=== PATIENT | male | born 1955 | race Caucasian/White ===

== ENCOUNTER 2017-02-13 17:33 | Inpatient (IN) | payer BC ==
[~2017-02-13] VITALS: Ht 172.7 cm; Wt 102.3 kg
[2017-02-13 18:08] LABS: HEMOGLOBIN ISTAT 16.3 gm/dL; POTASSIUM ISTAT 4.3 mmol/L (3.5-5.0)
--- NOTE | 2017-02-13 18:12 | ED.ADGEN ---
Past History Past Medical History: Hypertension, Other Past Surgical History: Other Adult General Chief Complaint Chief Complaint ".. I been having really sharp chest pain the last hour... it has not gone away..." HPI HPI Patient is a 61 year old male who presents with above hx and complaints of chest pain. Pain is rated 7/10.. and constant the past hour. Pain is not made worse with cough or movement. Pt. denies prior Hx. of HTN or tobacco use. No prior hx of chest pain, cardiac dz. , DVT or PE. Pt. has family Hx of sister with Mi ate 61, and father of MD age 57. Pt. does drink two beers a day. No hx of trauma, tavel or ill contracts. Pt. normally follows with Dr. Oliveros. Review of Systems Review of Systems Constitutional: Denies fever or chills [] Eyes: Denies change in visual acuity, redness, or eye pain [] HENT: Denies nasal congestion or sore throat [] Respiratory: Denies cough or shortness of breath [] Cardiovascular: No additional information not addressed in HPI [] GI: Denies abdominal pain, nausea, vomiting, bloody stools or diarrhea [] : Denies dysuria or hematuria [] Musculoskeletal: Complaints of mid back/ chest pain . Denies joint pain [] Integument: Denies rash or skin lesions [] Neurologic: Denies headache, focal weakness or sensory changes [] Endocrine: Denies polyuria or polydipsia [] Family History Family History Sister has had an MD and father from MD Current Medications Current Medications Current Medications Medications (Trade) Dose Ordered Sig/Momo Start Time Stop Time Status Last Admin Dose Admin Aspirin (Children'S Aspirin) 324 mg 1X ONCE 02/13/17 18:45 02/13/17 18:46 DC 02/13/17 18:45 324 MG Enoxaparin Sodium 100 mg 100 mg 1X ONCE 02/13/17 18:45 02/13/17 18:46 DC 02/13/17 18:43 100 MG Lactated Ringer's (Iv Lactated Ringers) 1,000 ml @ 1,000 mls/hr Q1H 02/13/17 18:15 02/13/17 18:47 1,000 MLS/HR Nitroglycerin (Nitro-Bid Oint) 1 inch 1X ONCE 02/13/17 18:45 02/13/17 18:46 DC 02/13/17 18:42 1 INCH See nursing for home meds Allergies Allergies Allergies Coded Allergies Type Severity Reaction Last Updated Verified No Known Drug Allergies 02/13/17 No Physical Exam Physical Exam Constitutional: Moderately acute distress, non-toxic appearance. [] HENT: Normocephalic, atraumatic, bilateral external ears normal, oropharynx moist, no oral exudates, nose normal. [] Eyes: PERRLA, EOMI, conjunctiva normal, no discharge. [] Neck: Normal range of motion, no tenderness, supple, no stridor. [] Cardiovascular: Bradycardia Heart rate regular rhythm, no murmur [] Lungs & Thorax: Bilateral breath sounds at apexes on auscultation [] Abdomen: Bowel sounds normal, soft, no tenderness, no masses, no pulsatile masses. Declines rectal at this time. Skin: Warm, dry, no erythema, no rash. [] Back: No tenderness, no CVA tenderness. [] Extremities: No tenderness, no cyanosis, no clubbing, ROM intact, no edema. No cording appreciated Neurologic: Alert and oriented X 3, normal motor function, normal sensory function, no focal deficits noted. [] Psychologic: Affect anxious, judgement normal, mood normal. [] Current Patient Data Vital Signs Vital Signs Date Time Temp Pulse Resp B/P Pulse Ox O2 Delivery O2 Flow Rate FiO2 02/13/17 19:44 98 18 164/96 94 Room Air 02/13/17 17:33 97.8 Lab Results Laboratory Tests Test 02/13/17 17:45 02/13/17 17:53 02/13/17 17:56 02/13/17 18:30 Prothrombin Time 9.9SEC (9.4-11.4) Prothrombin Time INR 1.0 (0.9-1.1) PTT 26SEC (23-33) D-Dimer (Halley) 0.54mg/L (0.00-0.50) H Creatine Kinase 139U/L (39-308) Creatine Kinase MB (Mass) 2.9ng/mL (0.0-3.6) Creatine Kinase MB Relative Index 2.1% (0-4) Troponin I Quantitative 0.061ng/mL (0-0.055) H RY-Nwi-U-Type Natriuretic Peptide 77pg/mL (0-124) POC Hemoglobin 16.3gm/dL POC Hematocrit 48% POC Sodium 142mmol/L (135-145) POC Potassium 4.3mmol/L (3.5-5.0) POC Chloride 101mmol/L (98-110) POC Total CO2 31mmol/L (23-32) Anion Gap 16mmol/L (6-14) H POC Blood Urea Nitrogen 21mg/dL (8-26) POC Creatinine 0.9mg/dL (0.5-1.4) Glucose Level 168mg/dL (60-99) H POC Ionized Calcium (Michael) 1.08mmol/L (1.13-1.32) L POC Troponin I 0.03ng/ml (<0.08) Urine Collection Type Unknown Urine Color Yellow Urine Clarity Clear Urine pH 8.5 Urine Specific [place] 1.015 Urine Protein 100 mg/dl (NEG-TRACE) Urine Glucose (UA) Negmg/dL (NEG) Urine Ketones (Stick) Negmg/dL (NEG) Urine Blood Neg (NEG) Urine Nitrite Neg (NEG) Urine Bilirubin Neg (NEG) Urine Urobilinogen Dipstick 1mg/dL (0.2 mg/dL) Urine Leukocyte Esterase Neg (NEG) Urine RBC Occ/HPF (0-2) Urine WBC Occ/HPF (0-4) Urine Squamous Epithelial Cells Occ/LPF Urine Bacteria 0/HPF (0-FEW) Urine Mucus Slight/LPF Urine Opiates Screen Neg (NEG) Urine Methadone Screen Neg (NEG) Urine Barbiturates Neg (NEG) Urine Phencyclidine Screen Neg (NEG) Urine Amphetamine/Methamphetamine Neg (NEG) Urine Benzodiazepines Screen Neg (NEG) Urine Cocaine Screen Neg (NEG) Urine Cannabinoids Screen Neg (NEG) Urine Ethyl Alcohol Neg (NEG) EKG EKG My interpretation of EKG shows a sinus bradycardia at 61. Does have anterior septal changes. But no findings acute STEMI at this time. Does have some LVH changes. [] Radiology/Procedures Radiology/Procedures My interpretation of chest x-ray shows some borderline cardiomegaly. Some basilar atelectasis bilaterally. No large infiltrate appreciated Course & Med Decision Making Course & Med Decision Making Pertinent Labs and Imaging studies reviewed. (See chart for details) Patient currently at 1900 hrs. completely pain-free. Blood pressure is down to the 150s / 80. Discussed presentation, testing and treatment plan with Dr. Oliveros. Will admit for further eval and tx. [] Final Impression Final Impression 1. Chest Pain[] 2. HTN 3. DM 4. Elevated D-dimer 5. Bilateral atelectasis Problems: Dragon Disclaimer Dragon Disclaimer This electronic medical record was generated, in whole or in part, using a voice recognition dictation system. DEEJAY OSBORNE MD Feb 13, 2017 18:12
[2017-02-13] MEDS ORDERED: IV RINGERS SOLUTION,LACTATED 1,000 ML IV SCH (18:15)
[2017-02-13] MEDS ORDERED: ASPIRIN 81 MG TAB.CHEW PO ONE (18:45)
[2017-02-13] MEDS ORDERED: ENOXAPARIN ** NOTE DOSE ** SYRINGE SQ ONE (18:45)
[2017-02-13] MEDS ORDERED: NITROGLYCERIN OINT 1 GM PACKET. TP ONE (18:45)
[2017-02-13 19:08] LABS: BARBITURATES NEG (NEG); BENZODIAZEPINES NEG (NEG); CANNABINOIDS NEG (NEG); COCAINE NEG (NEG); METHADONE NEG (NEG); OPIATES NEG (NEG); PHENCYCLIDINE NEG (NEG)
[2017-02-13 19:09] LABS: AMPHETAMINE/METHAMPHETAMINE NEG (NEG)
[2017-02-13 19:10] LABS: BACTERIA,URINE 0 /HPF (0-FEW); BILIRUBIN,URINE NEG (NEG); CLARITY,URINE CLEAR; COLOR,URINE YELLOW; GLUCOSE,URINE NEG (NEG); NITRITE,URINE NEG (NEG); RBC,URINE OCC /HPF (0-2); SQUAMOUS EPITHELIAL CELL,UR OCC /LPF; UROBILINOGEN,URINE 1 mg/dL (0.2 mg/dL); WBC,URINE OCC /HPF (0-4)
--- NOTE | 2017-02-13 19:24 | EKG ---
[address] [address] Test Date: 2017-02-13 Test Time: 17:40:33 Pat Name: ERICK WITT Department: Room: Gender: M [employer] Machine: EMILIE : 1955 Requested By: DEEJAY OSBORNE Order Number: [id number] Reading MD: Andrew Henriquez Measurements Intervals [place] Rate: 61 P: [place]: QRS: 31 QRSD: 104 T: 58 QT: 416 QTc: 424 Interpretive Statements SINUS RHYTHM NON-SPECIFIC ST/T CHANGES Electronically Signed On 02-17-2017 15:30:04 CDT by Andrew Henriquez
[2017-02-13] MEDS ORDERED: ONDANSETRON PF 4 MG/2 ML VIAL. IV PRN (19:45)
[2017-02-13] MEDS ORDERED: MORPHINE SULFATE 2 MG/ML DISP.SYRIN. IV PRN (19:45)
[2017-02-13] MEDS ORDERED: IPRATRPIUM/ALBUTEROL 0.5/2.5MG 3 ML NEBU. NEB ONE (19:50)
[2017-02-13] MEDS ORDERED: IOHEXOL 300 MG/ML 75 ML VIAL. IV ONE (20:15)
--- NOTE | 2017-02-13 20:24 | RAD ---
PROCEDURE CT angiogram of the chest with intravenous contrast. HISTORY Chest pain and shortness of breath. Elevated D-dimer. TECHNIQUE Computed tomographic images of the chest were obtained following the administration of 75 cc Omnipaque 300 intravenous contrast. One or more of the following individualized dose reduction techniques were utilized for this examination: 1. Automated exposure control; 2. Adjustment of the mA and/or kV according to patient size; 3. Use of iterative reconstruction technique. COMPARISON None. FINDINGS There is no evidence of pulmonary embolism. The heart is upper normal in size. There is a bovine aortic arch branching pattern, a normal variant. No pathologically enlarged mediastinal or hilar lymph node is seen. There is no pneumothorax or plural effusion. There is posterior dependent and basilar atelectasis. There is gynecomastia. There is hepatomegaly and hepatic steatosis. There is mild splenomegaly. The adrenal glands and visualized portions of the kidneys are unremarkable. There is no suspicious osseous lesion. There are degenerative changes within the thoracic spine. IMPRESSION 1. No acute pulmonary finding. 2. Hepatomegaly and hepatic steatosis and mild splenomegaly. Electronically signed by: Hannah Sims (Feb 13, 2017 20:24:11)
[2017-02-13] MEDS: ENOXAPARIN ** NOTE DOSE ** SYRINGE SQ SCH (21:00)
[2017-02-13] MEDS: NITROGLYCERIN OINT 1 GM PACKET. TP SCH (21:00)
[2017-02-13 21:52] VITALS: BP 128/80
--- NOTE | 2017-02-13 22:10 | NUR ---
The patient, ERICK WITT, 61 y/o, M admitted by MARIO PATTERSON MD, was given written information regarding hospital policies, unit procedures and contact persons. Valuables were checked and logged. Call light in place. Will continue to monitor.
--- NOTE | 2017-02-14 00:41 | ACF ---
Admission Criteria Forms CARDIOLOGY [facility] Clinical Indications for Admission to Inpatient Care ( Place 'X' for any and all applicable criteria): Hospital admission is needed for appropriate care of the patient because of ANY ONE of the following (1): [ ] I. Hemodynamic instability as indicated by ALL of the following (1)(2)(3) (4)(5) [ ]a) Vital signs or other findings not as expected for chronic patient condition or baseline [ ]b) Instability indicated by ANY ONE of the following: [ ]i) Hypotension [ ]ii) Symptomatic Tachycardia unresponsive to treatment ( e.g., analgesia, fluids, sedation as indicated) [ ]iii) Inadequate perfusion indicated by ANY ONE of the following: [ ] 1) Lactic acidosis (> 2 mmol/L) [ ] 2) New abnormal capillary refill (> 3 seconds) [ ] 3) Reduced urine output [ ] 4) New altered mental status [ ]iv) Orthostatic vital sign changes unresponsive to treatment (e.g., fluids) [ ]v) IV inotropic or vasopressor medication required to maintain adequate blood pressure or perfusion [ ] II. Severe heart failure as indicated by ANY ONE of the following(17)(18) [ ]a) Respiratory distress [ ]b) Hypotension [ ]c) Anasarca (refractory to outpatient therapy) [ ]d) Cardiac arrhythmias of immediate concern [ ]e) Myocardial ischemia [ ] III. Cardiac arrhythmias or findings of immediate concern indicated by ANY ONE of the following (19)(20): [ ] a) Heart rhythms that are inherently dangerous or unstable indicated by ANY ONE of the following (21)(22)(23): [ ] i) Resuscitated ventricular fibrillation or cardiac arrest [ ] ii) Ventricular escape rhythm [ ] iii) Sustained ventricular tachycardia (30 seconds or more of ventricular rhythm at greater than 100 beats per minute) [ ] iv) Nonsustained ventricular tachycardia and ANY ONE of the following: [ ] 1) Suspected cardiac ischemia as cause or consequence of ventricular tachycardia [ ] 2) In setting of acute myocarditis [ ] b) Unstable cardiac conduction defects indicated by ANY ONE of the following(23)(24)(25) [ ] i) Type II second-degree atrioventricular block [ ]ii) Third-degree atrioventricular block [ ]iii) New-onset left bundle branch block with suspected myocardial ischemia [ ]c) Any heart rhythm and ANY ONE of the following (21)(22)(26)(27) (28) [ ] i) Continuous long-term ECG monitoring needed (e.g., initiation of drug requiring monitoring for more than 24 hours) [ ] ii) Patient has automatic implanted cardioverter defibrillator that is repeatedly firing, malfunctioning, or in need of immediate adjustment of settings beyond the scope of ambulatory or observation care [ ]d) Heart rhythms of concern due to ANY ONE of the following: [ ] i) Hypotension [ ] ii) Respiratory distress [ ] iii) Association with other significant symptoms (e.g., bradycardia with syncope or ongoing dizziness, supraventricular tachycardia with chest pain (14)(15)(17) [ ] IV. Monitoring for cardiac contusion beyond the scope of observation care needed [A](30)(31)(32) [ ] V. Surgical or device complication (e.g., valve replacement complication , pacemaker dysfunction) (35)(41)(44)(45)(46) [ ] . Inpatient palliative care needed. [B](49) Also use Inpatient Palliative Care Criteria [ ] VII. Nonbacterial thrombotic (marantic) endocarditis (36)(43)(47)(48) [X] VIII. Cardiology condition, symptom, or finding for which emergency and observation care has failed or are not considered appropriate. [ ] IX. Acute valvular disease requiring inpatient as indicated by ANY ONE of the following (41) [ ]a) Acute valvular regurgitation (42) [ ]b) Noninfectious valvulitis (43) [ ]c) Obstructive valve thrombosis [ ]d) Paravalvular leak [ ]e) Other significant valvular disorder remaining after emergency or observation level of care (as appropriate) [ ]X. Pericardial disease requiring inpatient treatment as indicated by ANY ONE of the following (33)(34)(35)(36)(37) [ ]a) Suspected tamponade (38)(39)(40) [ ]b) Hemopericardium [ ]c) Other significant pericardial disorder remaining after emergency or observation level of care (as appropriate) [ ] XI. Cardiac ischemia beyond scope of emergency and observation care. [ ] XII. Hypertension requiring inpatient treatment as indicated by ANY ONE of the following (6)(7)(8) [ ]a) SBP greater than 220 mm Hg or DBP greater than 120 mmHg despite treatment [ ]b) SBP greater than 140 mm Hg or DBP greater than 100 mm Hg with evidence of acute end organ damage as indicated by ANY ONE of the following [ ] i) Encephalopathy [ ] ii) Acute renal failure as indicated by new onset of ANY ONE of the following (9)(10)(11)(12)(13) [ ]1) 3-fold rise in serum creatinine from baseline [ ]2) Serum creatinine greater than 4 mg/dL ( 354 micromoles/L) with acute rise greater than 0.5 mg/dL (44.2 micromoles/L) [ ]3) Reduction of more than 75% in estimated glomerular filtration rate from baseline [ ]4) Estimated glomerular filtration rate less than 35 mL/min/1.73m2 (0.59 mL/sec/1.73m2) in child up to 18 years of age [ ]5) Cessation of urine output indicated by ALL of the following [ ]A. Adequate volume status [ ]B. Inadequate urine output as indicated by ANY ONE of the following [ ]a. Urine output less than 0.3 mL/kg/hr for 24 hours [ ]b. Anuria (urine output less than 0.1 mL/kg/hr) for 12 hours [ ] iii) Aortic dissection [ ] iv) Myocardial Ischemia [ ] v) Left ventricular heart failure [ ]vi) Retinal Hemorrhage [ ]vii) Other significant finding [ ]c) Hypertension in child requiring inpatient treatment as indicated by ALL of the following(14)(15)(16) [ ] i) Outpatient treatment not effective, not available, or not appropriate [ ]ii) SBP or DBP greater than 95th percentile for age [ ]iii) Evidence of acute end organ damage as indicated by ANY ONE of the following [ ]1) Altered mental status [ ]2) Acute renal failure as indicated by new onset of ANY ONE of the following(9)(10)(11)(12)(13) [ ]A. 3-fold rise in serum creatinine from baseline [ ]B. Serum creatinine greater than 4 mg/dL (354 micromoles/L) with acute rise greater than 0.5 mg/dL (44.2 micromoles/L) [ ]C. Reduction of more than 75% in estimated glomerular filtration rate from baseline [ ]D. Estimated glomerular filtration rate less than 35 mL/min/1.73m2 (0.59 mL/sec/1.73m2) in child up to 18 years of age [ ]E. Cessation of urine output indicated by ALL of the following [ ]a. Adequate volume status [ ]b. Inadequate urine output as indicated by ANY ONE of the following [ ]i) Urine output less than 0.3 mL/kg/hr for 24 hours [ ]ii) Anuria ( urine output less than 0.1 mL/kg/hr) for 12 hours [ ]3) Severe headache [ ]4) Visual disturbance [ ]5) Retinal hemorrhage [ ]6) Other significant finding [ ]XIII. Complications of transplanted heart indicated by ANY ONE of the following(61): [ ]a) Acute graft rejection requiring inpatient management (eg, intravenous immunosuppression)(62)(63) [ ]b) Acute graft heart failure indicated by ANY ONE of the following(64): [ ]i) Hemodynamic instability [ ]ii) Cardiac arrhythmias of immediate concern [ ]iii) Pulmonary edema that is very severe (eg, mechanical ventilation needed, imminent or likely, need for 100% oxygen to keep oxygen saturation above 90%) [ ]iv) Pulmonary edema that is persistent as indicated by ALL of the following: [ ]1) New need for oxygen therapy to keep oxygen saturation above 90% (or increased FiO2 need from baseline) [ ]2) Has not improved sufficiently with emergency department or observation care IV diuretics or other heart failure treatments[E] [ ]v) Altered mental status that is severe or persistent [ ]vi) Increased creatinine (new on laboratory test) with reduction of more than 50% in estimated glomerular filtration rate from baseline [ ]vii) Progressively (ongoing) rising creatinine (known from past laboratory test) with reduction of more than 25% in estimated glomerular filtration rate from baseline [ ]viii) Acute renal failure [ ]ix) Acute peripheral ischemia (eg, examination shows pulseless, cool, mottled, or cyanotic extremity) [ ]x) Pulmonary artery catheter monitoring needed [ ]xi) Other sign or symptom of heart failure requiring inpatient treatment (ie, too severe or not responsive to outpatient and observation care treatment) [ ]c) Infection requiring inpatient management (eg, Hemodynamic instability, need for intravenous antimicrobial treatment)(66)(67)(68)(69)(70) [ ]d) Cardiac allograft vasculopathy requiring inpatient management ( eg evidence of cardiac ischemia)(71) [ ]e) Other complication of transplanted heart (eg, stroke, severe pulmonary hypertension, severe valvular dysfunction) requiring inpatient management(72) The original [facility] content created by [facility] has been revised. The portions of the content which have been revised are identified through the use of italic text or in bold, and [facility] has neither reviewed nor approved the modified material. All other unmodified content is copyright [facility]. Please see references footnoted in the original [facility] edition 2016 Admission Criteria Met?: Yes DARREN CLAYTON Feb 14, 2017 00:41
[2017-02-14 01:40] VITALS: BP 124/66
--- NOTE | 2017-02-14 01:58 | EKG ---
[address] [address] Test Date: 2017-02-14 Test Time: 00:58:46 Pat Name: ERICK WITT Department: Room: [facility] 1 Gender: M Manager Study: KOFI : 1955 Requested By: MARIO PATTERSON Order Number: [id number] Reading MD: Andrew Henriquez Measurements Intervals [place] Rate: 66 P: 28 AR: 146 QRS: 5 QRSD: 102 T: 38 QT: 398 QTc: 419 Interpretive Statements SINUS RHYTHM Electronically Signed On 02-17-2017 15:31:05 CDT by Andrew Henriquez
[2017-02-14] MEDS ORDERED: no medications (02:07)
--- NOTE | 2017-02-14 02:13 | NUR ---
Cardio consult to Dr. Gomez at this time for stat consult.
--- NOTE | 2017-02-14 02:19 | NUR ---
Dr. Gomez notified for consult. No new orders given at this time.
[2017-02-14 06:34] VITALS: BP 133/68
[2017-02-14 07:17] LABS: BASO # 0.1 x10^3/uL (0.0-0.2); BASO % 1 % (0-3); EOS # 0.2 x10^3/uL (0.0-0.7); EOS % 3 % (0-3); HEMATOCRIT 39.9 % (39.0-53.0); HEMOGLOBIN 13.5 g/dL (13.0-17.5); LYMPH # 2.1 x10^3/uL (1.0-4.8); LYMPH % 26 % (24-48); MEAN CORPUSCULAR HEMOGLOBIN 29 pg (25-35); MEAN CORPUSCULAR HGB CONC 34 g/dL (31-37); MEAN CORPUSCULAR VOLUME 87 fL (79-100); MONO # 0.6 x10^3/uL (0.0-1.1); MONO % 7 % (0-9); NEUT % 63 % (31-73); PLATELET COUNT 168 x10^3/uL (140-400); RED BLOOD COUNT 4.61 x10^6/uL (4.30-5.70); RED CELL DISTRIBUTION WIDTH 13.9 % (11.5-14.5)
[2017-02-14 07:31] LABS: ALBUMIN 3.4 g/dL (3.4-5.0); ALBUMIN/GLOBULIN RATIO 1.3 (1.0-1.7); CALCIUM 8.5 mg/dL (8.5-10.1); GFR 75.5; POTASSIUM 4.3 mmol/L (3.5-5.1); TOTAL BILIRUBIN 0.4 mg/dL (0.2-1.0)
--- NOTE | 2017-02-14 07:47 | NUR ---
PT feeling fine this am. PT is able to verbalize understanding of poc. Will keep pt npo until cleared by cardio. Elayne SMITH
--- NOTE | 2017-02-14 07:53 | RAD ---
Bilateral lower extremity venous duplex study 02/14/2017 Clinical history: Chest pain, back pain and elevated d-dimer.. Technique: Using a combination of real time ultrasound imaging and color-flow and pulse Doppler imaging techniques along with graded compression and augmentation, duplex evaluation of the deep venous system of the both lower extremities was performed. Multiple images were obtained. Findings: There is no sonographic evidence of deep venous thrombosis involving the visualized deep venous structures of either lower extremity. Impression: Negative study.
--- NOTE | 2017-02-14 08:51 | RAD ---
PA and lateral chest radiographs 02/13/2017 Clinical history: Chest pain and shortness of breath. PA and lateral digital radiographs of the chest were obtained. No previous studies are available for comparison. The cardiac silhouette is borderline enlarged. The thoracic aorta is mildly tortuous. No acute pulmonary infiltrate is seen. No pleural effusion or pneumothorax is noted. Degenerative changes are seen involving the thoracic spine. Impression: No acute abnormality is seen.
[2017-02-14] MEDS: NITROGLYCERIN OINT 1 GM PACKET. TP SCH ×3 (09:00→20:25)
[2017-02-14] MEDS: ENOXAPARIN ** NOTE DOSE ** SYRINGE SQ SCH ×2 (09:03→20:25)
[2017-02-14] MEDS: ASPIRIN 325 MG TABLET PO SCH (09:04)
[2017-02-14 11:00] VITALS: BP 132/67
[2017-02-14] MEDS ORDERED: ZOLPIDEM 5 MG TABLET. PO PRN (11:15)
--- NOTE | 2017-02-14 11:33 | HP ---
ADMIT DATE: 02/13/2017 HISTORY OF PRESENT ILLNESS: A 61-year-old gentleman came in through the Emergency Room with chief complaint of chest pain. The patient noted that he had woken up from sleep and came in with chest pain substernal 7-10 constant for the past hour before coming into the Emergency Room. The patient did have a slight elevation of his troponin. The patient noted the pain was made worse with cough and movement; however, the patient was admitted for rule out OR protocol as his troponins were elevated. The patient was admitted for rule out OR protocol, consult Dr. Gomez. FAMILY HISTORY: Sister with OR at age 61. Father of OR at 57. PAST MEDICAL HISTORY: The patient's past medical history that of basically carpal tunnel surgery, musculoskeletal disorders, and obesity. SOCIAL HISTORY: Couple of beers a day. Denies smoking and drug use. REVIEW OF SYSTEMS: Denies headaches, vision changes, blurred vision, or double vision. Denies any melena, hematochezia, or hematemesis. He does have chest pain as noted. No shortness of breath. Denies diaphoresis. Denies problem with bowels or bladder. Neurologically stable. PHYSICAL EXAMINATION: GENERAL: This is a pleasant white male somewhat overweight. VITAL SIGNS: Blood pressure initially was 160/90, respiratory rate 18, pulse 70, afebrile, and 97% oxygen saturation. HEENT: The patient's head was atraumatic and normocephalic. Eyes, PERRLA without jaundice. Mouth and throat were normal. NECK: Supple without JVD. Carotids, no thyromegaly. LUNGS: Diminished throughout, but basically clear. CARDIOVASCULAR: Regular sinus rhythm. S1 and S2 without murmur, rub, thrill, or extra heart sounds. ABDOMEN: Soft, protuberant, and nontender. No rebound. No guarding. Positive bowel sounds. No hepatosplenomegaly noted. Normal male genitalia. EXTREMITIES: No clubbing, cyanosis, or edema. Negative Homans sign. Pulses noted distally. NEUROLOGIC: The patient was alert and oriented x 3. LABORATORY DATA: The patient's lab show white count, hemoglobin, and hematocrit are all within normal limits 18, 13, and 40. The patient's chemistries, sodium and potassium are all normal as was his BUN and creatinine at 14 and 1. Sugar was elevated at 160 and troponin elevated as high as 2.173 elevation. The patient's total protein slightly low at 6, but albumin was good at 3.4. IMPRESSION: Chest pain, and rule out angina, and some risk factors noted. PLAN: The patient will be seen by Cardiology, Dr. Moser and make further evaluation for possible heart catheterization here in 2 days. MARIO PATTERSON MD DR: MARK/angelita JOB#: [id number] / [id number]
[2017-02-14] MEDS ORDERED: DEXTROSE 50% 25 GM / 50ML DISP.SYRIN. IV PRN (12:30)
--- NOTE | 2017-02-14 12:55 | PDOC2 ---
CARDIAC CONSULT DATE OF CONSULT Date Of Consult DATE: 02/14/17 TIME: 12:48 REASON FOR CONSULT Reason for Consult Chest pain REFERRING PHYSICIAN Referring Physician Dr. Lutz HPI History of Present Illness The patient is a pleasant 61-year-old male who came to the emergency room last evening due to an episode of chest pain that awoke him from sleep. He described this as a 6 out of 10 pain. It was not associated with shortness of breath or lightheadedness. In the emergency room the patient's EKG showed a sinus rhythm with nonspecific ST-T wave changes anteriorly. His d-dimer was mildly elevated at 0.54. Workup for this included a check x-ray which was normal, a CTA of the chest that showed no evidence of pulmonary emboli and no other acute changes in her lower extremity ultrasound study that showed no evidence of DVT. The patient has remained pain-free overnight but has had an elevation of troponin of 2.1 which is now decreasing. His glucose is also elevated at 160 range. This morning he is comfortable and pain-free. PAST MEDICAL HISTORY Cardiovascular: HTN Endocrine: Diabetes PAST SURGICAL HISTORY Past Surgical History: Other (carpal tunnel surgery) FAMILY HISTORY Family History: Coronary Artery Disease, Other (the patient has several family members with early coronary artery disease.) SOCIAL HISTORY Smoke: No ALCOHOL: social CURRENT MEDICATIONS Current Medications Current Medications Aspirin (Children'S Aspirin) 324 mg 1X ONCE PO Last administered on 02/13/17 18:45; Start 02/13/17 at 18:45; Stop 02/13/17 at 18:46; Status DC Enoxaparin Sodium 100 mg 100 mg 1X ONCE SQ Last administered on 02/13/17 18: 43; Start 02/13/17 at 18:45; Stop 02/13/17 at 18:46; Status DC Lactated Ringer's (Iv Lactated Ringers) 1,000 ml @ 1,000 mls/hr Q1H IV Last administered on 02/13/17 18:47; Start 02/13/17 at 18:15 Nitroglycerin (Nitro-Bid Oint) 1 inch 1X ONCE TP Last administered on 18:42; Start 02/13/17 at 18:45; Stop 02/13/17 at 18:46; Status DC Albuterol/ Ipratropium (Duoneb) 3 ml 1X ONCE NEB ; Start 02/13/17 at 19:50; Stop 02/13/17 at 19:50; Status DC Ondansetron HCl (Zofran) 4 mg PRN Q4HRS PRN IV NAUSEA/VOMITING; Start 02/13/17 at 19:45; Stop 02/14/17 at 19:44 Morphine Sulfate (Morphine 2mg Syringe) 2 mg PRN Q2HR PRN IV PAIN; Start at 19:45; Stop 02/14/17 at 19:44 Enoxaparin Sodium (Lovenox 100mg Syringe) 100 mg BID SQ Last administered on 09:03; Start 02/13/17 at 21:00 Aspirin (Estella Aspirin) 325 mg DAILY PO Last administered on 02/14/17 09:04; Start 02/14/17 at 09:00 Nitroglycerin (Nitro-Bid Oint) 1 inch TID TP Last administered on 02/14/17 09: 00; Start 02/13/17 at 21:00 Iohexol (Omnipaque 300 Mg/ml) 75 ml 1X ONCE IV Last administered on 02/13/17 20:04; Start 02/13/17 at 20:15; Stop 02/13/17 at 20:16; Status DC Zolpidem Tartrate (Ambien) 5 mg PRN QHS PRN PO INSOMNIA, MAY REPEAT IN 1HR; Start 02/14/17 at 11:15 Insulin Aspart (Novolog) 0-7 UNITS QIDACHS SQ ; Start 02/14/17 at 16:30 Dextrose 12.5 gm PRN Q15MIN PRN IV SEE COMMENTS; Start 02/14/17 at 12:30 Active Scripts Active Reported [no medications] ALLERGIES Allergies: Coded Allergies: No Known Drug Allergies (Unverified , 02/13/17) ROS Cardiovascular: yes: Chest Pain PHYSICAL EXAM General: No acute distress HEENT: Atraumatic Lungs: Clear to auscultation Heart: Regular rate Abdomen: Normal bowel sounds VITALS Vital Signs Vital Signs Date Time Temp Pulse Resp B/P Pulse Ox O2 Delivery O2 Flow Rate FiO2 02/14/17 11:14 98.5 02/14/17 11:00 68 20 132/67 97 Room Air LABS LABS Laboratory Tests Test 02/13/17 17:45 02/13/17 17:53 02/13/17 17:56 02/13/17 18:30 Prothrombin Time 9.9SEC (9.4-11.4) Prothromb Time International Ratio 1.0 (0.9-1.1) Activated Partial Thromboplast Time 26SEC (23-33) D-Dimer (Halley) 0.54mg/L (0.00-0.50) Creatine Kinase 139U/L (39-308) Creatine Kinase MB (Mass) 2.9ng/mL (0.0-3.6) Creatine Kinase MB Relative Index 2.1% (0-4) Troponin I Quantitative 0.061ng/mL (0-0.055) IB-Bvp-O-Type Natriuretic Peptide 77pg/mL (0-124) Thyroid Stimulating Hormone (TSH) 1.899uIU/mL (0.358-3.740) Bedside Hemoglobin 16.3gm/dL Bedside Hematocrit 48% Bedside Sodium 142mmol/L (135-145) Bedside Potassium 4.3mmol/L (3.5-5.0) Bedside Chloride 101mmol/L (98-110) Bedside Total CO2 31mmol/L (23-32) Anion Gap 16mmol/L (6-14) Bedside Blood Urea Nitrogen 21mg/dL (8-26) Bedside Creatinine 0.9mg/dL (0.5-1.4) Glucose Level 168mg/dL (60-99) Bedside Ionized Calcium (Michael) 1.08mmol/L (1.13-1.32) Bedside Troponin I 0.03ng/ml (<0.08) Urine Collection Type Unknown Urine Color Yellow Urine Clarity Clear Urine pH 8.5 Urine Specific [place] 1.015 Urine Protein 100 mg/dl (NEG-TRACE) Urine Glucose (UA) Negmg/dL (NEG) Urine Ketones (Stick) Negmg/dL (NEG) Urine Blood Neg (NEG) Urine Nitrite Neg (NEG) Urine Bilirubin Neg (NEG) Urine Urobilinogen Dipstick 1mg/dL (0.2 mg/dL) Urine Leukocyte Esterase Neg (NEG) Urine RBC Occ/HPF (0-2) Urine WBC Occ/HPF (0-4) Urine Squamous Epithelial Cells Occ/LPF Urine Bacteria 0/HPF (0-FEW) Urine Mucus Slight/LPF Urine Opiates Screen Neg (NEG) Urine Methadone Screen Neg (NEG) Urine Barbiturates Neg (NEG) Urine Phencyclidine Screen Neg (NEG) Urine Amphetamine/Methamphetamine Neg (NEG) Urine Benzodiazepines Screen Neg (NEG) Urine Cocaine Screen Neg (NEG) Urine Cannabinoids Screen Neg (NEG) Urine Ethyl Alcohol Neg (NEG) Test 02/14/17 01:15 02/14/17 07:04 Troponin I Quantitative 2.173ng/mL (0-0.055) 1.800ng/mL (0-0.055) White Blood Count 8.0x10^3/uL (4.0-11.0) Red Blood Count 4.61x10^6/uL (4.30-5.70) Hemoglobin 13.5g/dL (13.0-17.5) Hematocrit 39.9% (39.0-53.0) Mean Corpuscular Volume 87fL (79-100) Mean Corpuscular Hemoglobin 29pg (25-35) Mean Corpuscular Hemoglobin Concent 34g/dL (31-37) Red Cell Distribution Width 13.9% (11.5-14.5) Platelet Count 168x10^3/uL (140-400) Neutrophils (%) (Auto) 63% (31-73) Lymphocytes (%) (Auto) 26% (24-48) Monocytes (%) (Auto) 7% (0-9) Eosinophils (%) (Auto) 3% (0-3) Basophils (%) (Auto) 1% (0-3) Neutrophils # (Auto) 5.0x10^3uL (1.8-7.7) Lymphocytes # (Auto) 2.1x10^3/uL (1.0-4.8) Monocytes # (Auto) 0.6x10^3/uL (0.0-1.1) Eosinophils # (Auto) 0.2x10^3/uL (0.0-0.7) Basophils # (Auto) 0.1x10^3/uL (0.0-0.2) Sodium Level 143mmol/L (136-145) Potassium Level 4.3mmol/L (3.5-5.1) Chloride Level 107mmol/L (98-107) Carbon Dioxide Level 30mmol/L (21-32) Anion Gap 6 (6-14) Blood Urea Nitrogen 14mg/dL (8-26) Creatinine 1.0mg/dL (0.7-1.3) Estimated GFR (Cockcroft-Gault) 75.5 BUN/Creatinine Ratio 14 (6-20) Glucose Level 160mg/dL (70-99) Calcium Level 8.5mg/dL (8.5-10.1) Total Bilirubin 0.4mg/dL (0.2-1.0) Aspartate Amino Transf (AST/SGOT) 27U/L (15-37) Alanine Aminotransferase (ALT/SGPT) 41U/L (16-63) Alkaline Phosphatase 58U/L (46-116) Total Protein 6.0g/dL (6.4-8.2) Albumin 3.4g/dL (3.4-5.0) Albumin/Globulin Ratio 1.3 (1.0-1.7) IMAGES IMAGES Chest x-ray shows no acute changes. CT scan of the chest shows no pulmonary emboli. Lower extremity venous ultrasound shows no evidence of DVT. HEART CATH Heart Cath 1. Chest pain. Patient is now pain-free and on anticoagulation. EKG shows nonspecific ST-T wave changes but troponin did elevated to 2.1 although it is declining. Patient has a history of probable diabetes with glucose in the 160 range. He has a very strong family history of early coronary artery disease as well. In this setting with cardiac catheterization is appropriate. Risks and benefits were discussed with the patient. The patient and his family are considering it. In the interval will continue him on anticoagulation and tentatively plan a cardiac catheterization on Thursday. 2. History of borderline hypertension. We'll continue present medications and monitoring. 3. Probable diabetes mellitus. As per the primary service. 4. Unknown cholesterol level. We'll check a cholesterol panel. Thank you for allowing us to participate in the care of your pleasant patient. NIDHI PAREDES MD Feb 14, 2017 12:55
[2017-02-14 15:34] VITALS: BP 134/76
[2017-02-14] MEDS: INSULIN ASPART 300 UNITS/3 ML INSULN.PEN SQ SCH ×2 (16:30→20:21)
--- NOTE | 2017-02-14 17:13 | NUR ---
Pt to have cardiac cath on Thursday. PT is to be transferred to [facility] tomorrow under a hospitalist to 2nd [address] Chang. Elayne SMITH
[2017-02-14 19:00] VITALS: BP 134/69
[2017-02-14 23:06] LABS: HEMOGLOBIN A1C 7.5 % (4.8-5.6)
[2017-02-15 06:36] VITALS: BP 158/84
[2017-02-15 06:55] LABS: BASO # 0.1 x10^3/uL (0.0-0.2); BASO % 1 % (0-3); EOS # 0.2 x10^3/uL (0.0-0.7); EOS % 3 % (0-3); HEMATOCRIT 41.5 % (39.0-53.0); HEMOGLOBIN 14.2 g/dL (13.0-17.5); LYMPH # 2.3 x10^3/uL (1.0-4.8); LYMPH % 33 % (24-48); MEAN CORPUSCULAR HEMOGLOBIN 30 pg (25-35); MEAN CORPUSCULAR HGB CONC 34 g/dL (31-37); MEAN CORPUSCULAR VOLUME 87 fL (79-100); MONO # 0.5 x10^3/uL (0.0-1.1); MONO % 8 % (0-9); NEUT # 3.8 x10^3uL (1.8-7.7); NEUT % 55 % (31-73); PLATELET COUNT 168 x10^3/uL (140-400); RED BLOOD COUNT 4.79 x10^6/uL (4.30-5.70); RED CELL DISTRIBUTION WIDTH 13.7 % (11.5-14.5); WHITE BLOOD COUNT 6.9 x10^3/uL (4.0-11.0)
[2017-02-15 06:57] LABS: CALCIUM 8.5 mg/dL (8.5-10.1); CREATININE 0.9 mg/dL (0.7-1.3); GFR 85.2
[2017-02-15] MEDS: INSULIN ASPART 300 UNITS/3 ML INSULN.PEN SQ SCH ×2 (07:30→12:17)
[2017-02-15] MEDS: NITROGLYCERIN OINT 1 GM PACKET. TP SCH (09:00)
[2017-02-15] MEDS: ENOXAPARIN ** NOTE DOSE ** SYRINGE SQ SCH (09:21)
[2017-02-15] MEDS: ASPIRIN 325 MG TABLET PO SCH (09:21)
[2017-02-15 11:28] VITALS: BP 153/94
--- NOTE | 2017-02-15 13:54 | NUR ---
Discharge Note: ERICK WITT LICBetsy Discharge instructions and discharge home medications reviewed with Other facility and a copy given. All questions have been answered and understanding verbalized. The following instructions and handouts were given: report given to Candice at [facility] Discontinued lines and drains: IV 18 gauge RT AC left intact. Patient discharged to [facility] for Cardiac Cath. To bed 250.
--- NOTE | 2017-02-15 14:38 | DS ---
DATE OF DISCHARGE: 02/15/2017 HOSPITAL COURSE: He came in with chest pain, woken up out of sleep with chest pain, did have elevated enzymes, and his troponin of up to 1.8. He was seen by Dr. Gomez, transfer down to the facility to [place] for heart catheterization obviously. The patient was placed on an insulin on a sliding scaling as the patient apparently had his labs that are showing a probably a new onset, hemoglobin A1c was 7.5. His triglycerides were 363, total cholesterol of 206, LDL of 108, HDL of 26, so high risk there with elevated sugars. The patient will continued to be monitored carefully, make further evaluation on him down there for his diabetes. He also had an elevated D-dimer, but a CTA was negative for pulmonary embolus. He did have hepatomegaly and hepatic steatosis. IMPRESSION: So, we have someone with angina, elevated troponin, hepatic steatosis, type 2 diabetes, hypercholesterolemia, hypertriglyceridemia, elevated troponins, A1c of 7.5. PLAN: The patient will be transferred down to [place] for heart catheterization tomorrow, Thursday morning. MARIO PATTERSON MD DR: MARK/angelita JOB#: [id number] / [id number]
== END 2017-02-15 13:45 | disposition short-term general hospital (02) | DRG 303 ==
LOC: ER 17:33 → ICU 19:44
PROVIDERS: ADMIT Family Medicine; ATTEND Family Medicine
DX: I25.119 Atherosclerotic heart disease of native coronary artery with unspecified angina pectoris (principal); J98.11 Atelectasis; E11.9 Type 2 diabetes mellitus without complications; E78.00 Pure hypercholesterolemia, unspecified; E78.1 Pure hyperglyceridemia; I10 Essential (primary) hypertension; E66.9 Obesity, unspecified; R16.0 Hepatomegaly, not elsewhere classified; E88.89 Other specified metabolic disorders; K76.0 Fatty (change of) liver, not elsewhere classified; Z82.49 Family history of ischemic heart disease and other diseases of the circulatory system
CPT/HCPCS: 36415; 71020; 71275; 80047; 80048; 80053; 80061; 81001; 82553; 82947; 83036; 83880; 84443; 84484; 85027; 85379; 85610; 85730; 87641; 93005; 93970; 96372; G0481; J1650; J1815; J7120; Q9967; 99285-25

== ENCOUNTER → 2019-02-16 | Outpatient (CLI) | payer MEDICARE ==
[~2019-02-16] MED LIST: no medications
[2019-02-16 12:42] LABS: CALCIUM 9.4 mg/dL (8.5-10.1); CREATININE 0.9 mg/dL (0.7-1.3); GFR 84.7; POTASSIUM 4.8 mmol/L (3.5-5.1)
== END | disposition home or self-care (01) ==
LOC: LAB 11:27
PROVIDERS: ATTEND Nurse Practitioner
DX: I10 Essential (primary) hypertension (principal)
CPT/HCPCS: 36415; 80048

== ENCOUNTER → 2019-02-22 | Outpatient (CLI) | payer MEDICARE ==
--- NOTE | 2019-02-22 14:22 | CARD ---
MR#: [id number] Date of Study: 02/22/2019 Ordering Physician: CHARO NAVA, Referring Physician: CHARO NAVA, Tech: Amarilis Rios RDCS APPROVED REPORT EXAM: Two-dimensional and M-mode echocardiogram with Doppler and color Doppler. Other Information Quality : AverageHR: 68bpm Rhythm : NSR INDICATION Hypertension/HCVD 2D DIMENSIONS RVDd3.2 (2.9-3.5cm)Left Atrium(2D)4.2 (1.6-4.0cm) IVSd1.0 (0.7-1.1cm)Aortic Root(2D)3.0 (2.0-3.7cm) LVDd5.6 (3.9-5.9cm)LVOT Diameter1.9 (1.8-2.4cm) PWd0.9 (0.7-1.1cm)LVDs4.1 (2.5-4.0cm) FS (%) 26.7 %SV80.1 ml LVEF(%)53.0 (>50%) M-Mode DIMENSIONS Left Atrium(MM)3.95 (2.5-4.0cm)Aortic Root2.73 (2.2-3.7cm) Aortic Valve AoV Peak Solomon.168.2cm/sAoV VTI39.0cm AO Peak GR.11.3mmHgLVOT Peak Solomon.94.2cm/s LVOT VTI 18.89cmAO Mean GR.7mmHg MIKIE (VMAX)1.90bi7XGH (VTI)1.41cm2 Mitral Valve MV E Vdpgxlwk118.4cm/sMV DECEL DUQY850hd MV A Ibwuldpp753.5cm/sE/A Ratio0.9 MV A Clltufah603uc Pulmonary Valve PV Peak Rtfocayn007.0cm/sPV Peak Grad.6mmHg Pulmonary Vein S1 Snlcijll43.5cm/sD2 Wccjjimx20.0cm/s LEFT VENTRICLE The left ventricle is normal size. There is normal left ventricular wall thickness. The left ventricu lar systolic function is normal. The Ejection Fraction is 55-60%. There is normal LV segmental wall m otion. Transmitral Doppler flow pattern is Grade I-abnormal relaxation pattern. RIGHT VENTRICLE The right ventricle is normal size. There is normal right ventricular wall thickness. The right ventr icular systolic function is normal. ATRIA The left atrium is mildly dilated. The right atrium size is normal. The interatrial septum is intact with no evidence for an atrial septal defect or patent foramen ovale as noted on 2-D or Doppler imagi ng. AORTIC VALVE The aortic valve is thickened but opens well. The aortic valve is trileaflet. Doppler and Color Flow revealed no significant aortic regurgitation. There is no significant aortic valvular stenosis. MITRAL VALVE The mitral valve is normal in structure and function. There is no evidence of mitral valve prolapse. There is no mitral valve stenosis. Doppler and Color-flow revealed trace mitral regurgitation. TRICUSPID VALVE The tricuspid valve is normal in structure and function. Doppler and Color Flow revealed no tricuspid valve regurgitation noted. There is no tricuspid valve prolapse or vegetation. There is no tricuspid valve stenosis. PULMONIC VALVE The pulmonic valve is not well visualized. GREAT VESSELS The aortic root is normal in size. The ascending aorta is normal in size. The IVC is normal in size a nd collapses >50% with inspiration. PERICARDIAL EFFUSION There is no evidence of significant pericardial effusion. Critical Notification Critical Value: No <Conclusion> The left ventricular systolic function is normal. The Ejection Fraction is 55-60%. There is normal LV segmental wall motion. Transmitral Doppler flow pattern is Grade I-abnormal relaxation pattern. Doppler and Color-flow revealed trace mitral regurgitation. There is no evidence of significant pericardial effusion. Signed by : Toño Tong, Electronically Approved : 02/22/2019 14:21:33
== END | disposition home or self-care (01) ==
LOC: ECHO 12:41
PROVIDERS: ATTEND Nurse Practitioner
DX: I10 Essential (primary) hypertension (principal)
CPT/HCPCS: 93306